=== PATIENT | female | born 1955 | race Caucasian/White ===

== ENCOUNTER 2023-12-14 13:13 | Emergency (ER) | payer MEDICARE, MEDICAID ==
[~2023-12-14] VITALS: Ht 157.5 cm; Wt 63.6 kg
[2023-12-14 13:19] VITALS: BP 126/82; PULSE 81; RESP 18; TEMP 97.8; O2SAT 94
[2023-12-14 15:12] LABS: BASOPHILS # (AUTO) 0.1 X10'3 (0-0.2); BASOPHILS % (AUTO) 0.7 % (0-1); EOSINOPHILS # (AUTO) 0.1 X10'3 (0-0.9); EOSINOPHILS % (AUTO) 1.5 % (0-6); HEMATOCRIT 44.4 % (35.0-45.0); HEMOGLOBIN 14.8 g/dl (12.0-16.0); LYMPHOCYTES % (AUTO) 22.4 % (21-51); MEAN CORPUSCULAR HEMOGLOBIN 28.2 PG (27.0-31.0); MEAN CORPUSCULAR HGB CONC 33.2 g/dL (33.0-36.5); MEAN CORPUSCULAR VOLUME 84.9 FL (78-98); MONOCYTES # (AUTO) 0.6 X10'3 (0-0.9); MONOCYTES % (AUTO) 6.5 % (2-12); NEUTROPHILS # (AUTO) 6.2 X10'3 (1.8-7.7); NEUTROPHILS % (AUTO) 68.9 % (42-75); PLATELET COUNT 476 X10'3 (140-440); RED BLOOD COUNT 5.23 X10'6 (4.20-5.60)
[2023-12-14 15:21] LABS: APTT 26 SECONDS (22-32)
[2023-12-14 15:22] LABS: INR 0.9 INR
[2023-12-14 15:26] LABS: ALANINE AMINOTRANSFERASE 20 U/L (12-78); ALKALINE PHOSPHATASE 93 IU/L (46-116); ANION GAP 10 (8-16); ASPARTATE AMINO TRANSFERASE 17 U/L (10-37); BILIRUBIN,TOTAL 0.3 MG/DL (0.1-1.0); BLOOD UREA NITROGEN 19 MG/DL (7-18); BUN/CREATININE RATIO 19.4 (10.0-20.0); CALCIUM 9.7 MG/DL (8.5-10.1); CHLORIDE 102 MMOL/L (99-107); CREATININE 0.98 MG/DL (0.40-0.90); GLUCOSE 97 MG/DL (70-104); POTASSIUM 4.1 MMOL/L (3.5-5.1); SODIUM 140 MMOL/L (135-145); TOTAL CARBON DIOXIDE 28.4 MMOL/L (24-32); TOTAL PROTEIN 7.9 G/DL (6.4-8.2); eCRCL 45 ML/MIN; eGFR 57 ML/MIN
[2023-12-14 15:40] LABS: FREE T4 (FREE THYROXINE) 0.74 NG/DL (0.73-1.40); PRO BRAIN NATRIURETIC PEPTIDE 41 PG/ML (0-125); THYROID STIMULATING HORMONE 5.34 ulU/ml (0.34-4.50)
== END 2023-12-14 19:40 | disposition left against medical advice (07) ==
LOC: ER 13:14
DX: R06.02 Shortness of breath (principal); R42 Dizziness and giddiness; Z53.21 Procedure and treatment not carried out due to patient leaving prior to being seen by health care provider
CPT/HCPCS: 36415; 70450; 71045; 80053; 83880; 84439; 84443; 84484; 85025; 85610; 85730; 93005; 99281